=== PATIENT | female | born 1965 | race Caucasian/White ===

== ENCOUNTER 2017-03-17 22:00 | Emergency (ER) | payer OTHER ==
[2017-03-17 22:05] VITALS: BP 107/69; PULSE 65; RESP 20; TEMP 98.2; O2SAT 98
[2017-03-17] MEDS ORDERED: SODIUM CHLOR 0.9% 1000 ML INJ 1,000 ML IV ONE ×2 (22:08→23:30)
[2017-03-17] MEDS ORDERED: SODIUM CHLORIDE 0.9% FLUSH 10 ML FLUSH IVF PRN (22:15)
[2017-03-17] MEDS ORDERED: ONDANSETRON HCL 4 MG/2 ML VIAL IVP ONE (22:15)
--- NOTE | 2017-03-17 22:18 | PD ---
HPI Chief Complaint: Syncope/Near-Syncope Time Seen by Provider: 22:08 Travel History International Travel<30 days: No Contact w/Intl Traveler<30days: No Traveled to known affect area: No History of Present Illness HPI 52-year-old female presents to the emergency department by private transportation the care of her daughter for evaluation of syncope. Just prior to arrival to the emergency department patient had 2 episodes of syncope witnessed by her daughter without seizure activity. Patient has been active all day long and out of the sun with possible dehydration while at dinner developed urge to have a bowel movement with some abdominal cramping and nausea broken into a sweat and while in the bathroom door witnessed her having a syncopal episode brief duration was laid down on the floor and symptoms resolved then an additional syncopal episode which resolved after being reclined again. Paramedics were called to the scene but patient declined transport to the hospital by EMS. Patient has history of lupus. Patient also has history of breast cancer diagnosed November 2015 and has undergone mastectomy and chemotherapy. Chemotherapy was begun November 2016 and one month ago chemotherapy medication was changed and patient has not felt well since starting this new medication. She has had ongoing episodes of nausea and intermittent abdominal discomfort. Patient denies any chest pain, pleuritic chest pain but did experience some shortness of breath. No upper extremity or lower extremity swelling or pain. No history of DVT or PE. Patient is visiting from [place], [place]. Patient denies pain at this time. [facility] Past Medical History Narrative Medical Lupus, breast cancer, right mastectomy, reconstructive surgery, left Infuse-a- Port, cervical cone biopsy; no tobacco use occasional alcohol use; nursing notes reviewed Social History Tobacco Use: No Allergies-Medications (Allergen,Severity, Reaction): Coded Allergies: Penicillin (Verified Allergy, Unknown, 03/17/17) Reported Meds & Prescriptions Reported Meds & Active Scripts Active Zofran Odt (Ondansetron Odt) 4 Mg Tab 4 Mg SL Q6HR PRN Reported Imuran (Azathioprine) 50 Mg Tab 50 Mg PO BID Hazardous agent: use appropriate precautions for handling and disposal. Femara (Letrozole) 2.5 Mg Tab Plaquenil (Hydroxychloroquine Sulfate) 200 Mg Tab 200 Mg PO BID Take with food Review of Systems Except as stated in HPI: all other systems reviewed are Neg General / Constitutional: No: Fever, Chills Eyes: No: Visual changes HENT: Positive: Lightheadedness, No: Headaches Cardiovascular: Positive: Diaphoresis, Syncope (x 2), No: Chest Pain or Discomfort, Dyspnea on exertion, Edema Respiratory: Positive: Shortness of Breath (breifly this evening) Gastrointestinal: Positive: Nausea, Abdominal Pain (intermittent cramping), No : Vomiting, Diarrhea Genitourinary: No: Dysuria, Decreased Urinary Output Musculoskeletal: No: Myalgias, Arthralgias, Cramping, Edema, Pain Skin: No Rash Neurologic: Positive: Weakness, Dizziness, Syncope, No: Focal Abnormalities, Coordination Problem, Ataxia, Headache, Change in Mentation, Slurred Speech, Paresthesia, Incontinence, Seizures Psychiatric: No: Anxiety Endocrine: No: Heat Intolerance Hematologic/Lymphatic: No: Easy Bruising Physical Exam Narrative GENERAL: Well-developed well-nourished female in no acute distress no respiratory distress; GCS 15. Initial vital sign values within normal range. SKIN: Warm and dry. HEAD: Atraumatic. Normocephalic. EYES: Pupils equal and round. No scleral icterus. No injection or drainage. ENT: No nasal bleeding or discharge. Mucous membranes pink and moist. NECK: Trachea midline. No JVD. CARDIOVASCULAR: Regular rate and rhythm. RESPIRATORY: No accessory muscle use. Clear to auscultation. Breath sounds equal bilaterally. GASTROINTESTINAL: Abdomen soft, non-tender, nondistended. Hepatic and splenic margins not palpable. MUSCULOSKELETAL: Extremities without clubbing, cyanosis, or edema. No obvious deformities. NEUROLOGICAL: Awake and alert. No obvious cranial nerve deficits. Motor grossly within normal limits. Five out of 5 muscle strength in the arms and legs. Sensory exam intact. No pronator drift. No limb ataxia. Normal speech. PSYCHIATRIC: Appropriate mood and affect; insight and judgment normal. Data Data Last Documented VS Vital Signs Date Time Temp Pulse Resp B/P Pulse Ox O2 Delivery O2 Flow Rate FiO2 03/18/17 00:40 77 15 109/79 99 03/18/17 00:17 98.0 Room Air Orders Electrocardiogram (03/17/17 22:08) Complete Blood Count With Diff (03/17/17 22:08) Comprehensive Metabolic Panel (03/17/17 22:08) Magnesium (Mg) (03/17/17 22:08) Troponin I (03/17/17 22:08) Act Partial Throm Time (Ptt) (03/17/17 22:08) Prothrombin Time / Inr (Pt) (03/17/17 22:08) Urinalysis - C+S If Indicated (03/17/17 22:08) Chest, Single Ap (03/17/17 22:08) Ct Brain W/O Iv Contrast(Rout) (03/17/17 22:08) Blood Glucose (03/17/17 22:08) Ecg Monitoring (03/17/17 22:08) Iv Access Insert/Monitor (03/17/17 22:08) Oximetry (03/17/17 22:08) Ondansetron Inj (Zofran Inj) (03/17/17 22:15) Sodium Chloride 0.9% Flush (Ns Flush) (03/17/17 22:15) Sodium Chlor 0.9% 1000 Ml Inj (Ns 1000 M (03/17/17 22:08) Alcohol (Ethanol) (03/17/17 22:08) Lipase (03/17/17 22:08) D-Dimer (03/17/17 22:08) Sodium Chlor 0.9% 1000 Ml Inj (Ns 1000 M (03/17/17 23:30) Orthostatic Vital Signs (03/17/17 23:26) Labs Laboratory Tests Test 03/17/17 03/18/17 22:40 00:00 White Blood Count 2.9 TH/MM3 Red Blood Count 4.19 MIL/MM3 Hemoglobin 11.2 GM/DL Hematocrit 34.8 % Mean Corpuscular Volume 83.0 FL Mean Corpuscular Hemoglobin 26.8 PG Mean Corpuscular Hemoglobin 32.3 % Concent Red Cell Distribution Width 12.8 % Platelet Count 206 TH/MM3 Mean Platelet Volume 7.8 FL Neutrophils (%) (Auto) 57.5 % Lymphocytes (%) (Auto) 27.7 % Monocytes (%) (Auto) 11.3 % Eosinophils (%) (Auto) 2.4 % Basophils (%) (Auto) 1.1 % Neutrophils # (Auto) 1.7 TH/MM3 Lymphocytes # (Auto) 0.8 TH/MM3 Monocytes # (Auto) 0.3 TH/MM3 Eosinophils # (Auto) 0.1 TH/MM3 Basophils # (Auto) 0.0 TH/MM3 CBC Comment DIFF FINAL Differential Comment Prothrombin Time 11.4 SEC Prothromb Time International 1.0 RATIO Ratio Activated Partial 24.7 SEC Thromboplast Time D-Dimer Quantitative (PE/DVT) 0.29 MG/L FEU Sodium Level 140 MEQ/L Potassium Level 3.4 MEQ/L Chloride Level 104 MEQ/L Carbon Dioxide Level 26.9 MEQ/L Anion Gap 9 MEQ/L Blood Urea Nitrogen 15 MG/DL Creatinine 0.75 MG/DL Estimat Glomerular Filtration 81 ML/MIN Rate Random Glucose 118 MG/DL Calcium Level 9.3 MG/DL Magnesium Level 2.2 MG/DL Total Bilirubin 1.1 MG/DL Aspartate Amino Transf 37 U/L (AST/SGOT) Alanine Aminotransferase 44 U/L (ALT/SGPT) Alkaline Phosphatase 81 U/L Troponin I LESS THAN 0.02 NG/ML Total Protein 7.3 GM/DL Albumin 3.8 GM/DL Lipase 140 U/L Ethyl Alcohol Level 35 MG/DL Urine Color YELLOW Urine Turbidity CLEAR Urine pH 5.5 Urine Specific [place] 1.014 Urine Protein NEG mg/dL Urine Glucose (UA) NEG mg/dL Urine Ketones NEG mg/dL Urine Occult Blood NEG Urine Nitrite NEG Urine Bilirubin NEG Urine Leukocyte Esterase TRACE Urine RBC 0-2 /hpf Urine WBC 0-2 /hpf Urine Squamous Epithelial 0-5 /hpf Cells Urine Bacteria NONE /hpf Microscopic Urinalysis Comment CULT NOT INDICATED MDM Medical Decision Making Medical Screen Exam Complete: Yes Emergency Medical Condition: Yes Medical Record Reviewed: Yes Interpretation(s) EKG normal sinus rhythm rate [address] elevation or injury pattern change noted nonspecific T-wave septally V1 V2; no comparison EKG UA: wnl CK: 81, not elevated; troponin I less than 0.02, not elevated Coagulation studies normal range D-dimer: 0.29, not elevated CBC is automated differential mild leukopenia 2900 this is discussed with patient who states her white cell count has been running 2000 and normal platelet count and no left shift by automated differential Chemistries are grossly within normal range mild hypokalemia 3.4; and nonspecific total bilirubin of 1.1. Chest x-ray no lobar infiltrate Last Impressions Chest X-Ray 03/17/17 8857 Signed Impressions: Service Date/Time: Friday, March 17, 2017 22:23 - CONCLUSION: No acute disease. Damian Valdes MD CBC & BMP Diagram 03/17/17 22:40 Differential Diagnosis Syncope, vasovagal syncope, dehydration, arrhythmia, PE, sepsis Narrative Course 52-year-old female presently in no acute distress with 2 episodes of brief syncope that occurred while patient was going to the bathroom patient placed on patient monitor IV access obtained specimens collected and sent for resulting EKG performed IV fluids normal saline 1 L administered as well as Zofran 4 mg IV for complaint of nausea EKG sinus rhythm no acute ST elevation or injury pattern change or ectopy noted nonspecific T-wave inversion septally; no comparison EKG Patient resting comfortably conversing and animated with her family at bedside. Lab values resulting patient with mild leukopenia which reported to patient she states her white count has been running in the ; mild hypokalemia 3.4; cardiac enzymes are normal range; d-dimer is 0.29, not elevated; chest x-ray reveals no acute process. CT brain noncontrast has been ordered Orthostatic measurements performed and no significant variance supine sitting to standing and patient asymptomatic. It is 12:05 AM and patient is refusing CT brain noncontrast. Patient's currently sitting upright taking oral hydration/tolerating popsicle; additional normal saline administered. Discussed with patient and family at bedside recommendation for CT brain noncontrast after syncopal episode patient again states that she's not willing to undergo CT imaging and refusing sodium this time. It's 12:34 AM lab values resulted patient continues to refuse CT brain noncontrast; patient is received 2 L of normal saline taking oral hydration well asymptomatic. Presentation is consistent with dehydration episode and vasovagal syncope. No acute injury pattern findings by EKG no chest pain or pleuritic chest pain no shortness of breath except for when she was feeling faint d-dimer is elevated. Patient be discharged in the care of her family and encouraged to follow up closely with specialist on Sunday. Patient able to her about the emergency department asymptomatic with out assistance with family and nurse at her side. Blood pressure remained stable. Diagnosis Primary Impression: Vasovagal syncope Referrals: Primary Care Physician 2 days Patient Instructions: General Instructions Additional Instructions: Increase fluid hydration Add potassium containing beverages and foods to dietary intake Takes Zofran as prescribed as needed for nausea and/or vomiting Monitor temperature every 4 hours rest monitor take as needed acetaminophen/ Tylenol for fever 100.4F or greater Return to the emergency department for any concerns or change in condition Follow-up with primary care provider/specialist Sunday Med/Other Pt SpecificInfo: Prescription(s) given Scripts Ondansetron Odt (Zofran Odt)4 Mg Tab4 Mg SL Q6HR PRN (Nausea/Vomiting) #10 TAB Ref 0 Prov:Stephie Braun MD 03/18/17 Stephie Braun MD March 17, 2017 22:18
[2017-03-17] MEDS ORDERED: PLAQ200T PO (22:27)
[2017-03-17] MEDS ORDERED: FEMA2.5T (22:27)
[2017-03-17] MEDS ORDERED: IMUR50TA PO (22:28)
[2017-03-17 22:45] VITALS: O2SAT 98
[2017-03-17 22:58] LABS: AUTOMATED NEUTROPHIL # 1.7 TH/MM3 (1.8-7.7); BASOPHIL % 1.1 % (0.0-2.0); EOSINOPHIL # 0.1 TH/MM3 (0-0.4); EOSINOPHIL % 2.4 % (0.0-4.0); HEMATOCRIT 34.8 % (35.0-46.0); HEMO FLAGS DIFF FINAL; LYMPH % 27.7 % (9.0-44.0); LYMPHOCYTE # 0.8 TH/MM3 (1.0-4.8); MEAN CORPUSCULAR HEMOGLOBIN 26.8 PG (27.0-34.0); MEAN CORPUSCULAR HGB CONC 32.3 % (32.0-36.0); MONO % 11.3 % (0.0-8.0); NEUT % 57.5 % (16.0-70.0); PLATELET COUNT 206 TH/MM3 (150-450); RED BLOOD COUNT 4.19 MIL/MM3 (4.00-5.30); RED CELL DISTRIBUTION WIDTH 12.8 % (11.6-17.2); WHITE BLOOD COUNT 2.9 TH/MM3 (4.0-11.0)
[2017-03-17 23:06] LABS: CHLORIDE 104 MEQ/L (98-107); POTASSIUM 3.4 MEQ/L (3.5-5.1); SODIUM (NA) 140 MEQ/L (136-145)
[2017-03-17 23:09] LABS: ANION GAP 9 MEQ/L (5-15); BICARBONATE 26.9 MEQ/L (21.0-32.0)
--- NOTE | 2017-03-17 23:09 | RADHPO ---
EXAM DATE/TIME: 03/17/2017 22:23 [facility] COMPARISON: No previous studies available for comparison. INDICATIONS : Patient complains of dizziness and weakness. MEDICAL HISTORY : Carcinoma, bone. SURGICAL HISTORY : Mastectomy, bilateral. ENCOUNTER: Initial ACUITY: 1 day PAIN SCORE: 2/10 LOCATION: Bilateral chest FINDINGS: A single view of the chest demonstrates the lungs to be symmetrically aerated without evidence of mas s, infiltrate or effusion. There is a left internal jugular line in place. The cardiomediastinal con tours are unremarkable. Osseous structures are intact. CONCLUSION: No acute disease. Damian Valdes MD on March 17, 2017 at 23:07 Board Certified Radiologist. This report was verified electronically.
[2017-03-17 23:10] LABS: BLOOD UREA NITROGEN 15 MG/DL (7-18); MAGNESIUM 2.2 MG/DL (1.5-2.5)
[2017-03-17 23:12] LABS: ALT (GPT) 44 U/L (10-53); AST (GOT) 37 U/L (15-37); GLOMERULAR FILTRATION RATE 81 ML/MIN (>89)
[2017-03-17 23:14] LABS: APTT (PATIENT) 24.7 SEC (24.3-30.1); PROTHROMBIN TIME - PATIENT 11.4 SEC (9.8-11.6); TOTAL BILIRUBIN ADULT 1.1 MG/DL (0.2-1.0)
[2017-03-17 23:15] LABS: ALKALINE PHOSPHATASE 81 U/L (45-117)
[2017-03-17 23:48] VITALS: BP_SYST 101; BP_SYST 104; BP_DIAS 59; BP_DIAS 69; BP_DIAS 86
[2017-03-18 00:14] LABS: BLOOD, URINE NEG (NEG); GLUCOSE,URINE NEG (NEG); KETONE, URINE NEG (NEG); NITRITE,URINE NEG (NEG); PH, URINE 5.5 (5.0-8.5)
[2017-03-18 00:17] VITALS: PULSE 77; RESP 16; TEMP 98; O2SAT 99
[2017-03-18 00:27] LABS: RBC, URINE 0-2 /hpf (0-3); SQUAMOUS EPITHELIAL CELL URINE 0-5 /hpf (0-5); URINE COLOR YELLOW (YELLW/STRAW); WBC, URINE 0-2 /hpf (0-5)
[2017-03-18 00:28] LABS: COMMENT (UR) CULT NOT INDICATED; CULTURE IF INDICATED CULT NOT INDICATED
[2017-03-18 00:40] VITALS: BP 109/79
[2017-03-18] MEDS ORDERED: ZOFR4TAB3 SL (00:40)
--- NOTE | 2017-03-18 16:44 | EKG ---
Date Performed: 03/17/2017 Time Performed: 22:45:02 PTAGE: 52 years EKG: Sinus rhythm Anterior T wave changes are nonspecific Borderline ECG NO PREVIOUS TRACING : DOCTOR: Roselia Bo Interpretating Date/Time 03/18/2017 16:43:04
== END 2017-03-18 01:00 | disposition home or self-care (01) ==
LOC: PHED 22:00
DX: E86.0 Dehydration (principal); E87.6 Hypokalemia; R55 Syncope and collapse; M32.9 Systemic lupus erythematosus, unspecified; Z79.899 Other long term (current) drug therapy; Z85.3 Personal history of malignant neoplasm of breast
CPT/HCPCS: 71010; 80053; 80307; 81001; 83690; 83735; 84484; 85025; 85379; 85610; 85730; 93005; 96361; 96374; 99285; J2405; J7030